=== PATIENT | female | born 1965 | race Caucasian/White ===

== ENCOUNTER 2018-03-26 10:00 | Observation (INO) ==
--- NOTE | 2018-03-26 09:01 | Discharge Summary ---
- NOTES TO OUTPATIENT PROVIDER Notes to Outpatient Provider: new HYPERTENSION - started on Lisinopril 10mg x 1 week until pcp appt. Orders not resulted at time of discharge: Pending orders 03/26/18 08:23 XR knee LT 1-2V [XR] Routine H/H [Hemoglobin and Hematocrit] [HEME] Routine Date of Encounter: 03/29/18 Time of Encounter: 11:47 - Discharge Diagnosis (1) Status post total knee replacement, left Priority: Primary Status: Acute Comments: Opsite dressing, leave intact until first post-operative visit. If dressing becomes >50% saturated, contact office, remove dressing and place appropriate dressing in its place. Do not allow for dressing to get wet. Zipline in place, plan to remove at post-operative day #14-16. Total Joint Precautions x 6 weeks Apply cold therapy wrap 3-6x/day for 20 minutes at a time. Encourage ambulation throughout the day Use Incentive spirometer 10x/hour. Elevate affected extremity above heart as tolerated. Brace: Wear knee immobilizer at night until first post-operative appt. (2) Arthritis of knee, left Priority: Primary Status: Chronic (3) Hepatitis C Priority: Secondary Status: Chronic Qualifiers: Qualified Code(s): B18.2 - Chronic viral hepatitis C (4) History of laparoscopic adjustable gastric banding Priority: Secondary Status: Chronic Comments: Unable to take tablets or capsules. 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 Green is a 52 year old female, status post Left TKR on 03/26- with a history of lab band procedure, codeine allergy, chronic hepatitis C, substance abuse, oropharyngeal dysphagia . Pain control difficult secondary to above mentioned medical complications. Overall, patient agreeable to liquid pain medication, Lidoderm patch. Unable to take oral NSAIDS, Tylenol, or any other tablets such as gabapentin, flexeril, etc. 03/28 - Hypertension noted - hospitalist consulted. Acute blood loss anemia - 1 unit transfused. We started Lisinopril 10mg, which will be continued x 1 week until she sees her PCP and pain has improved. Patient seen at bedside, A&O x 3 Afebrile, vital signs stable. BP controlled. Vital Signs Temp Pulse Resp BP Pulse Ox 03/29/18 10:57 98.7 F 88 18 135/85 100 03/29/18 09:59 123/81 03/29/18 06:44 98.9 F 91 16 150/93 100 03/29/18 04:08 98.7 F 83 16 128/81 99 03/29/18 00:31 98.6 F 74 18 139/88 100 03/28/18 20:54 88 138/83 03/28/18 19:40 98.1 F 82 16 147/93 97 03/28/18 17:17 170/95 03/28/18 16:50 98.5 F 90 16 175/107 95 03/28/18 14:41 98.6 F 91 18 172/105 100 03/28/18 14:00 99.1 F 86 20 177/103 100 Intake and Output 03/28/18 03/29/18 03/29/18 23:59 07:59 15:59 Intake Total 240 / 240 100 / 100 Output Total 800 / 800 Balance -560 / -560 100 / 100 Intake: Oral 240 / 240 100 / 100 Output: Urine 800 / 800 Other: Meal Dinner Breakfast Percent of Meal Consumed 75% 10% # Voids 1 1 Weight 42.4 kg Patient Weight 03/29/18 23:59 Weight 42.4 kg Labs reviewed. H/H - stable, asymptomatic Short CBC 03/29/18 Range/Units 04:08 WBC 7.6 D (4.3-11.1) K/mcL Hgb 8.6 L (11.5-15.4) g/dL Hct 26.0 L (35.3-44.9) % Plt Count 202 (140-400) K/mcL Neutrophils # 5.7 (1.6-8.9) K/mcL BMP 03/29/18 Range/Units 04:08 Sodium 136 (136-145) mEq/L Potassium 3.8 (3.5-5.1) mEq/L Chloride 99 (98-107) mEq/L Carbon Dioxide 29 (23-29) mEq/L BUN 8 (6-20) mg/dL Creatinine 0.41 L (0.60-1.20) mg/dL Glucose 109 H (70-105) mg/dL Calcium 8.7 (8.6-10.3) mg/dL Pain control: adequate Participating in PT. All questions and concerns addressed. Educated on use of incentive spirometer. Encouraged ambulation and proper hydration. Patient educated on post-operative restrictions and post-operative care. Assessment and plan: Continue with postoperative care Discharge plan: Home with HH , discharge today. f/up with PCP - Time Spent with Patient Total time spent providing and/or coordinating discharge services: - Discharge Medications Prescriptions: Lisinopril [Zestril] 10 mg PO DAILY #7 tablet Home Medications: Enoxaparin [Lovenox] 30 mg SQ Q12HCO syringe 03/29/18 [Rx] Lidocaine Patch [Lidoderm 5% patch] 1 each TP DAILY adh..patch 03/29/18 [Rx] Lisinopril [Zestril] 10 mg PO DAILY #7 tablet 03/29/18 [Rx] OxyCODONE Oral Soln [OxyCODONE ORAL SOLN] 5 mg PO Q4H PRN 7 Days #1 ud.[id number] 03/29/18 [Rx] Allergies/Adverse Reactions: Allergy/AdvReac Type Severity Reaction Status Date / Time codeine Allergy Unresponsiv Verified 03/22/18 11:53 e Sulfa (Sulfonamide AdvReac Unresponsiv Verified 03/22/18 11:53 Antibiotics) e Date of admission: 03/26/18 Primary care physician: PCP NONE Anticipated date of discharge: 03/29/18 - Patient Status Disposition: Home Health Service Condition: Good Functional capacity at discharge: uses cane/walker Overall status at discharge: patient is progressing back to baseline - Discharge Instructions Follow Up With: Rajeev King MD [Partnered Physician] - 04/25/18 5:05 pm Dejah Hassan PAC [Physician Pulp Maker] - 04/04/18 10:30 am (Second [facility] 04/13/18 @ 8am) NONE,PCP [Primary Care Provider] - Additional Instructions: Discharge Instructions: Total Knee Replacement Please call [facility] ([phone]), your Primary Care Physician, or report to the Emergency Room if you have any of the following symptoms: Nausea, vomiting, fever greater that 101.5, swelling, chest pain, shortness of breath, increased pain/redness/drainage/odor for your incision site, numbness/tingling, or any other concerning symptoms. ACTIVITY:Weight-bearing as tolerated. You may progress off support (crutches or walker) as tolerated. Incentive Spirometer 10 times an hour. MEDICATIONS: Upon discharge resume your home medications. Take all the medica tions as prescribed. Take a stool softener if taking narcotic pain medications. Stool softeners are only effective if you drink enough fluids. Drink 6-8 glass of water or fluids a day, unless this is not allowed for another health problem. Despite using stool softeners, if you haven't had a bowel movement in 3 days, please switch to a gentle laxative. Gentle laxatives are sold over the counter. You should have a bowel movement within 24 hours, if not call the office. You will be discharged from the hospital with a prescription for pain medication. You are encouraged to decrease the use of narcotic pain medication as tolerated. Should you require a refill, please call the office. [facility] prescribes narcotic pain medication for only 4-6 weeks after surgery. If you require pain medication beyond this time period, you may be referred to your Primary Care Physician or to the Pain Clinic for further evaluation. Plan ahead for refills on pain medication as many narcotics either need to be picked up at the office or mailed. It is best to call 48-72 hours in advance of needing a prescription refill so you don't run out of medication. To help control the post-operative pain, you may take NSAIDs (Aleve,Advil, Motrin, Ibuprofen, Naprosyn) or Tylenol as prescribed on the bottle in addition to the pain medication. ANTICOAGULATION (blood thinners): Continue your Aspirin, Lovenox or Coumadin as prescribed to help prevent a blood clot in the leg or in the lungs. As long as your incision remains dry and you tolerate the NSAIDs (Aleve, Advil, Motrin, ibuprofen, naprosyn), it is OK to use the NSAIDS while you are taking your anticoagulation medication. Should your incision start to drain, stop the NSAID and contact our office. Common symptoms of blood clot in the legs include: localized pain, swelling, calf tenderness, redness or discoloration of the skin. Blood clot in the lung symptoms include: shortness of breath, rapid pulse, sweating, and chest pain that worsens with deep breathing, coughing up blood, lightheadedness, feelings of anxiety. If you experience any of these symptoms notify your physician immediately, go to the emergency room, or if having trouble breathing, call 911. WOUND CARE: Leave the dressing on for 7 to 10days. You may change the dressing if it becomes saturated greater than 50%. Do not get the dressing wet at anytime. Wash your hands with antibacterial soap, rinse and dry prior to any wound care. If you have anatoliy the visiting nurse or rehab facility can remove the stapes 10-14 days after surgery and place steri-strips across the wound. Leave the steri-strips in place until they fall off on their won. You may let water from the shower run on top of the steri-strips. If you do not have a visiting nurse or rehab facility, you will need to return to the office at 10-14 days for the anatoliy to be removed. If you have itching or redness around the dressing call the office. FOLLOW-UP: Please follow up with your surgeon in the orthopedic clinic in 4 weeks from the day of surgery. If you have anatoliy that need to be removed, you will need to come back to the office in 10-14 days from the day of surgery. - Diet and Activity Activity: as per physical therapy
[2018-03-26] MEDS ORDERED: CeFAZolin Syr 2,000MG/20 ML 2,000 MG/20 ML SYRINGE IVPB ONE (10:22)
--- NOTE | 2018-03-26 10:25 | History & Physical Report ---
Date of Encounter: 03/26/18 Time of Encounter: 10:24 24 Hour HP Update - Instructions Instructions: If the History and Physical is less than 30 days old and was completed prior to A.M. admission and or procedure and has NOT been updated on calendar day of procedure please complete this update prior to performing procedure. - Update Patient reports changes in Medical Condition: No Changes in examination, assessment, or condition: No Changes in Medication: No Preop tests/diagnostics Reviewed: Yes Surgery Remains Indicated: Yes Consent for Planned Operative Procedure(s) Verified: Yes - Pre-Operative Checklist Preoperative Checklist Indicated: No Prophylactic Antibiotic Ordered: Yes Is VTE Prophylaxis Indicated?: Yes
[2018-03-26] MEDS ORDERED: Ringers Solution, Lactated 1,000 ML IVC SCH (10:30)
--- NOTE | 2018-03-26 12:08 | Anesthesia Evaluation PreOp ---
Date of Encounter: 03/26/18 Time of Encounter: 12:24 - Past History Planned Operation: LEFT TKA Cardiac History: Denies any Significant Hx Pulmonary History: Denies Any Significant HX HEALTH INSURANCE ASSESSOR History: Other (ANXIETY, NOT TREATED, HISTORY OF POLYDRUG ABUSY, HAS BEEN CLEAN FOR 10 YRS NOW) Other Medical History: Other (100 LB CA LOSS POST LAP BAND TWO YEARS AGO) Anesthesia History: No Prior Anesthetic Complications, Past Anesthesia Alcohol Use: none Drug use: none Medications and Allergies No Known Home Drugs 03/26/18 [History] Allergy/AdvReac Type Severity Reaction Status Date / Time codeine Allergy Unresponsiv Verified 03/22/18 11:53 e Sulfa (Sulfonamide AdvReac Unresponsiv Verified 03/22/18 11:53 Antibiotics) e - Meds/Allergy Pre-op Review Medications Reviewed: Yes Allergies Reviewed: Yes Beta Blockers on Current Med List: No Anesthesia Results - Labs Laboratory Last Values WBC 4.6 K/mcL (4.3-11.1) 03/22/18 12:02 RBC 4.92 M/mcL (3.82-4.97) 03/22/18 12:02 Hgb 12.1 g/dL (11.5-15.4) 03/22/18 12:02 Hct 37.2 % (35.3-44.9) 03/22/18 12:02 MCV 75.6 fL (83.0-100.0) L 03/22/18 12:02 MCH 24.6 pg (28.0-33.3) L 03/22/18 12:02 MCHC 32.5 g/dL (31.6-35.5) 03/22/18 12:02 RDW 13.7 % (11.5-14.5) 03/22/18 12:02 Plt Count 315 K/mcL (140-400) 03/22/18 12:02 MPV 9.5 fL (9.4-12.4) 03/22/18 12:02 Immature Gran % 0.2 % (0-4) 03/22/18 12:02 Seg Neutrophils % 54.1 % 03/22/18 12:02 Lymphocytes % 37.2 % 03/22/18 12:02 Monocytes % 7.4 % 03/22/18 12:02 Eosinophils % 0.2 % 03/22/18 12:02 Basophils % 0.9 % 03/22/18 12:02 Neutrophils # 2.5 K/mcL (1.6-8.9) 03/22/18 12:02 Lymphocytes # 1.7 K/mcL (0.6-4.6) 03/22/18 12:02 Monocytes # 0.3 K/mcL (0.0-1.3) 03/22/18 12:02 Eosinophils # 0.0 K/mcL (0.0-0.6) 03/22/18 12:02 Basophils # 0.0 K/mcL (0.0-0.2) 03/22/18 12:02 PT 11.3 Seconds (9.4-12.1) 03/22/18 12:02 INR 1.0 03/22/18 12:02 APTT 34.5 Seconds (26.0-36.0) 03/22/18 12:02 Sodium 140 mEq/L (136-145) 03/22/18 12:02 Potassium 3.0 mEq/L (3.5-5.1) L 03/22/18 12:02 Chloride 104 mEq/L (98-107) 03/22/18 12:02 Carbon Dioxide 25 mEq/L (23-29) 03/22/18 12:02 BUN 12 mg/dL (6-20) 03/22/18 12:02 Creatinine 0.73 mg/dL (0.60-1.20) 03/22/18 12:02 Est GFR ( Amer) > 60 (> 60) 03/22/18 12:02 Est GFR (Non-Af Amer) > 60 (> 60) 03/22/18 12:02 BUN/Creatinine Ratio 16 (6-26) 03/22/18 12:02 Anesthesia Exam O2 Sat Height 1.57 m Height 1.57 m Weight 42.184 kg Weight 42.184 kg O2 Sat by Pulse Oximetry 100 O2 Sat by Pulse Oximetry 100 Vital Signs Temp Pulse Resp BP Pulse Ox 97.8 F 66 18 130/92 100 03/26/18 10:35 03/26/18 10:35 03/26/18 10:35 03/26/18 10:35 03/26/18 10:35 NPO (# of Hours): 8 - HEENT Mallampati: I Teeth: Normal Oral Opening: Greater than 3 (LIMITED MO) - Cardiac Rhythm: Regular - Pulmonary Breath Sounds: bilateral Clear Respiratory Effort: Symmetrical Anesthesia Assess/Plan ASA Score: 2 Anesthetic Plan: Regional Nerve Block (FOR POST OPERATIVE PAIN CONTROL), Spinal Regional Nerve Block Plan: Adductor canal, IPACK Monitoring Plan: Standard Monitors Recovery Plan: PACU Anes Supervising Prov Stmt: Patient informed and consented. Risks, benefits, and alternatives discussed. Patient wishes to proceed.
[2018-03-26] MEDS ORDERED: *HR* Methadone 10 MG TABLET PO ONE (12:26)
[2018-03-26] MEDS ORDERED: Pregabalin 50 MG CAPSULE PO ONE (12:27)
[2018-03-26] MEDS ORDERED: *HR* FentaNYL (PF) 100 MCG/2 ML VIAL ONE (13:33)
[2018-03-26] MEDS ORDERED: *HR* Propofol 200 MG/20 ML VIAL IVP ONE (13:33)
[2018-03-26] MEDS ORDERED: Lidocaine -MPF 2% 2 ML VIAL ONE (13:37)
[2018-03-26] MEDS ORDERED: Dexamethasone 4 MG/ML VIAL ONE (13:37)
[2018-03-26] MEDS ORDERED: Ondansetron 4 MG/2 ML VIAL ONE (13:37)
[2018-03-26] MEDS ORDERED: *HR* Midazolam HCl 2 MG/2 ML VIAL ONE (13:38)
[2018-03-26] MEDS ORDERED: Ethanol\\Acetic Acid\\Na Ace\\Ben 1,000 ML IRRIG.SOLN IR ONE (14:21)
[2018-03-26] MEDS ORDERED: ROPIVACAINE HCL/PF 0.5% 30 ML VIAL ONE (14:24)
[2018-03-26] MEDS ORDERED: Bupivacaine/Clonidine Syringe 1 EACH SYRINGE ONE (14:25)
--- NOTE | 2018-03-26 14:46 | Physician Discharge Referral ---
Home Health/Hosp Referral Info Transfer to: Home Health Attending Provider: Dr. 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 For more information, call the [place] Tobacco Quit Line at 4-214-QZNQ-NOW. - Dressing/Wound Care Site: left knee Type of Dressing/Treatments w/Frequency: Opsite placed. Keep dressing intact until first follow up appointment. If > 50% saturated, notify office, remove dressing and place appropriate dressing back in place. Leave Zipline intact. Opsite dressing is water resistant, not water- proof. OK to shower, but do not get dressing wet. - Diet/Nutrition Diet/Nutrition Orders: Regular - Activity Activity Orders: Up ad viri, Ambulate, Chair, Walker Activity: List: Total Knee replacement Precautions x 6 weeks Apply cold therapy wrap 3-6x/day for 20 minutes at a time. Encourage ambulation throughout the day and incentive spirometer 10x/hour. Elevate affected extremity above heart as tolerated. Brace: Wear knee immobilizer at night x 2 weeks. - Services Needed Following services are medically necessary services: Nursing, Home Health Aide, Physical Therapy, Occupational Therapy, Med Social Work - Transfer Medications Home Medications: No Known Home Drugs 03/26/18 [History] Allergies/Adverse Reactions: Allergy/AdvReac Type Severity Reaction Status Date / Time codeine Allergy Unresponsiv Verified 03/22/18 11:53 e Sulfa (Sulfonamide AdvReac Unresponsiv Verified 03/22/18 11:53 Antibiotics) e Certification: Further, I certify that my clinical findings support that this patient is homebound (i.e. absences from home require considerable and taxing effort and are for medical reasons or [employer] services or infrequently or short duration when for other reasons) because: Homebound Reason: Post-surgery restriction and or conditions limit ability to leave home Attestation: My signature below is to certify that this patient is under my care and that I, or nurse practitioner, or a physician hospital administrative assistant working with me, has a face -to-face encounter with this patient.
[2018-03-26] MEDS ORDERED: Propofol 500 MG/50 ML INFUS..BTL ONE (14:49)
--- NOTE | 2018-03-26 15:26 | Anesthesia Procedures ---
Date of Encounter: 03/26/18 Time of Encounter: 14:30 Procedures: Anesthesia - Epidural/Spinal Patient ID/Chart reviewed: Yes Patient examined: Yes Consent Obtained: Yes Supplemental Oxygen: Nasal Cannula Supplemental Oxygen Rate (L/min): 2 Sedation: Versed (mg): 2 Sedation: Fentanyl (mcg): 50 Site Prep: Aseptic Technique, Sterile prep and drape, 0.5% Chlorhexidine/Alcohol Patient position: upright Local Anesthetic: Lidocaine 1% Amount of Local Anesthetic used: 2 Interspace Used: L4-L5 Blood: No CSF: Yes Paresthesia: No Spinal Needle Gauge: 25 Spinal Dose: 2mL of 0.5% PF Bupivacaine with 200mcg Duramorph Procedure: Spinal completed at L4-L5 using sterile Technique. 25g pencil point needle inserted through introducer. Clear CSF noted, No heme and swirl noted on aspiration prior to injection of spinal anesthetic. Vitals + FHT's: Vital Signs/O2 Sat/Glucose, Most Recent Temp Pulse Resp BP Pulse Ox 97.8 F 73 16 140/99 100 03/26/18 10:35 03/26/18 14:25 03/26/18 14:25 03/26/18 14:25 03/26/18 14:25 - Nerve Block Procedure Date: 03/26/18 Time: 13:35 Allergies/Adv Reactions: Codeine, Sulfa Pre-op Diagnosis: L Knee Arthritis Surgical Procedure: L Robotic Total Knee Arthroplasty Checklist: Correct Patient Identifier, Correct procedure, History checked Correct side: Left Blood Thinner: No Monitor Applied: EKG, BP, Pulse Oximetry Supplemental Oxygen via Nasal Cannula (L/min): 2 Sedation: Versed (mg): 2 (Given prior to spinal ) Sedation: Fentanyl (mcg): 50 (Given prior to spinal) Indication: Post Op Analgesia Pre-op Neuro Deficits: No Block Type: Other (Adductor Cannal and IPACK) Catheter placed: No Sterile Technique: Yes Ultrasound used: Yes Anatomy identified: Yes Visual spread of Local: Yes Neuro Stimulation: No Blood on Needle Aspiration: No Smooth Injection of Local: Yes Pain with Injection of Local: No Prep: Chlorhexadine Needle: 22 x 50 mm Stimuplex, 21 x 100 mm Stimuplex Local: 0.25% Bupivicaine w/Clonidine 20 mcg/cc (20ml For IPACK), Ropivacaine (20mL of 0.5% Ropivacaine with 8mg decadron) Number of Attempts: 1 Complications: None/effective block Vitals: Vital Signs/O2 Sat/Glucose, Most Recent Temp Pulse Resp BP Pulse Ox 97.8 F 73 16 140/99 100 03/26/18 10:35 03/26/18 14:25 03/26/18 14:25 03/26/18 14:25 03/26/18 14:25
[2018-03-26] MEDS ORDERED: Ondansetron 4 MG/2 ML VIAL IVP ONE (15:34)
[2018-03-26] MEDS ORDERED: *HR* FentaNYL (PF) 100 MCG/2 ML VIAL IVP PRN (15:34)
[2018-03-26] MEDS ORDERED: Ondansetron 4 MG/2 ML VIAL IVP PRN ×2 (15:35→16:49)
[2018-03-26] MEDS ORDERED: *HR* HYDROmorphone (PF) 1 MG/ML SYRINGE IVP PRN (15:35)
--- NOTE | 2018-03-26 15:40 | Orthopedic Operative Note ---
Date of procedure: 03/26/18 Pre-op diagnosis: Left knee arthritis Post-op diagnosis: same Procedure: Procedure: Left robotic-assisted Total knee replacement Estimated blood loss: 200 cc Hardware: Metal and polyethylene replacement. Press-fit Josesito Femur: 2 Tibia: 2 PS insert: 11 Patella: 36 Exam Under anesthesia: 3 degree hyperextension 13 degree varus as calculated by the robot full flexion and no instability Procedural Notes: Grade 4 arthritic changes medial compartment patellofemoral joint. Operative procedure: The patient was brought to the operating room and placed on the operating room table. After general anesthesia was administered the operative knee was examined. Findings were noted in the exam under anesthesia. The operative extremity was prepped and draped in sterile surgical fashion. The patient received IV antibiotics prior to skin incision. A standard midline incision was made centered over the patella. The incision was made through the skin and subcutaneous tissue. A medial parapatellar tendon approach was performed. Care was taken to preserve tissue along the medial aspect of the patella. And to protect the patella tendon. The deep MCL was released off the medial tibia. The infra patella fat pad was excised. The patella was everted and cut was made at the level of the insertion of the quadriceps and patella tendon. The patella was sized the guide was seated and the lug holes are drilled. Knee was brought into flexion. Patient noted to have grade 4 arthritic changes no compartment patellofemoral joint. Steinmann pins were placed in the tibia and the femur for the tibial and femoral arrays respectively. Checkpoints were also placed in the tibia and the femur for calculation purposes. The knee including the femur and the tibial registered. Osteophytes, ACL and PCL were excised at this point. Extension and flexion were assessed with a valgus stress components were adjusted on the computer to balance the knee. Femoral cuts were made first with robotic assistance, these included the anterior cut posterior cuts chamfer cuts. Tibial cut was then performed with robotic assistance as well. Bone fragments were removed, as well as the medial and lateral meniscus. The size 2 femoral guide was seated box cut was made lug holes are drilled. The size 2 tibial tray was seated and prepared with the fin cutter. Trial reduction with the 11 PS Ivnoe revealed extension of 0 degree and 7 degree varus full flexion. No varus valgus instability. Trial reduction revealed excellent patella tracking. All trial components were removed all bony surfaces were irrigated. The Tibia was seated followed by the femur, The selected Ivone size was seated and secured patella. Patient had similar findings for motion and stability. The knee was closed by the PA. The knee was then irrigated out with 2 L of pulse irrigation. The extensor mechanism was closed with #2 FiberWire suture and #2 PDS suture. The subcutaneous tissue was then irrigated and closed deep with #1 PDS suture superficially with 0 PDS suture and skin was closed with zip tie The patient was then placed in a sterile dressing and a postoperative brace extubated and transferred to recovery room in stable condition. Anesthesia: spinal Surgeon: Rajeev King Was there an project assistant present: No Estimated blood loss (cc): 300 Condition: stable Disposition: PACU
[2018-03-26 16:38] LABS: Hematocrit 32.7 % (35.3-44.9)
[2018-03-26 16:46] LABS: Hemoglobin 10.4 g/dL (11.5-15.4)
[2018-03-26] MEDS ORDERED: OXYCODONE 5 MG/5 ML PO PRN (16:49)
[2018-03-26] MEDS ORDERED: Sennosides 8.6 MG TABLET PO PRN (16:49)
[2018-03-26] MEDS ORDERED: Temazepam 15 MG CAPSULE PO PRN (16:49)
[2018-03-26] MEDS ORDERED: Naloxone 0.4 MG/ML INJ IVP PRN (16:49)
[2018-03-26] MEDS ORDERED: traMADol 50 MG TABLET PO PRN (16:49)
[2018-03-26] MEDS ORDERED: *HR* OxyCODONE/APAP 5/325 TABLET PO PRN (16:49)
[2018-03-26] MEDS ORDERED: MOM Conc 10 ML UD.LIQ PO PRN (16:49)
[2018-03-26] MEDS: *HR* Enoxaparin 30 MG/0.3 ML SYRINGE SQ SCH (18:40)
--- NOTE | 2018-03-26 18:49 | Anesthesia Evaluation Post Op ---
Date of Encounter: 03/26/18 Time of Encounter: 16:40 - Discharge PostOp Status: Transfer Patient to floor (Patient's vital signs have been reviewed. Patient is stable postoperatively and has adequately recovered from anesthesia. Patient is determined to have stable airway patency and respiratory function including respiratory rate and oxygen saturation. Patient has a stable heart rate, blood pressure and adequate hydration. Patients mental status is acceptable. Patients temperature is appropriate. Pain and nausea are adequately controlled.)
[2018-03-26] MEDS: Ringers Solution, Lactated 1,000 ML IVC SCH (19:58)
[2018-03-27 05:34] LABS: Hematocrit 29.7 % (35.3-44.9); Hemoglobin 9.4 g/dL (11.5-15.4)
[2018-03-27] MEDS: *HR* Enoxaparin 30 MG/0.3 ML SYRINGE SQ SCH ×2 (05:41→16:18)
--- NOTE | 2018-03-27 06:26 | Orthopedics Progress Note ---
Date of Encounter: 03/27/18 Time of Encounter: 06:26 Subjective Interval history: Patient was seen this morning doing well without complaints. Afebrile vital signs stable. Operative extremity: Neurovascularly intact Dressing clean dry and intact Calves nontender Assessment and plan: Continue with postoperative care Hematocrit 29.7 Objective Vital signs: Vital Signs Temp Pulse Resp BP Pulse Ox 03/27/18 05:15 98.0 F 74 18 109/68 100 03/26/18 23:40 97.7 F 77 18 104/63 100 03/26/18 20:00 97.7 F 79 18 109/73 100 03/26/18 18:55 97.8 F 69 15 130/85 99 03/26/18 18:41 97.3 F L 66 14 117/77 100 03/26/18 18:00 97.5 F L 64 12 132/84 100 03/26/18 17:27 97.8 F 62 12 129/86 100 03/26/18 16:55 58 12 137/90 100 03/26/18 16:42 97.2 F L 66 18 128/90 100 03/26/18 16:32 64 18 139/92 100 03/26/18 16:22 58 18 136/89 100 03/26/18 16:12 97.9 F 62 18 111/77 100 03/26/18 14:25 73 16 140/99 100 03/26/18 10:41 100 03/26/18 10:35 97.8 F 66 18 130/92 100 Intake and Output 03/26/18 03/26/18 03/27/18 15:59 23:59 07:59 Intake Total 340 / 340 240 / 240 Output Total 300 / 300 0 / 0 Balance 40 / 40 240 / 240 Intake: IV Fluids 100 / 100 Ancef 2,000 MG In 0.9 % Sodium 100 / 100 Chloride 100 ML @ 200 mls/hr IVPB Q8H APOORVA Rx#:[id number] Oral 240 / 240 240 / 240 Output: Urine 0 / 0 0 / 0 Estimated Blood Loss 300 / 300 Other: # Voids 1 Weight 42.184 kg 41.8 kg Patient Weight 03/27/18 23:59 Weight 41.8 kg - Labs CBC & BMP: 03/27/18 04:50 Labs: Abnormal lab results Hgb 9.4 g/dL (11.5-15.4) L 11/13/18 04:50 Hct 29.7 % (35.3-44.9) L 03/27/18 04:50 Consult Discharge Plan - Plan Referrals: NONE,PCP [Primary Care Provider] -
[2018-03-27 06:37] LABS: BUN/Creatinine Ratio 23 (6-26); Blood Urea Nitrogen 14 mg/dL (6-20); Calcium 8.7 mg/dL (8.6-10.3); Carbon Dioxide 28 mEq/L (23-29); Glucose 144 mg/dL (70-105); eGFR For Non-African Americans > 60 (> 60)
[2018-03-27 06:38] LABS: Chloride 103 mEq/L (98-107); Osmolality,Calculated 293 (280-300); Sodium 140 mEq/L (136-145)
[2018-03-27] MEDS: Ringers Solution, Lactated 1,000 ML IVC SCH (09:15)
[2018-03-27] MEDS: *HR* OxyCODONE Oral Soln 5 MG/5 ML UD.LIQ PO PRN (09:17)
[2018-03-27] MEDS: Ketorolac 15 MG/ML VIAL IVP PRN ×2 (12:25→18:26)
[2018-03-28] MEDS: *HR* OxyCODONE Oral Soln 5 MG/5 ML UD.LIQ PO PRN ×6 (00:25→20:46)
[2018-03-28 05:50] LABS: Hematocrit 23.9 % (35.3-44.9); Hemoglobin 7.9 g/dL (11.5-15.4)
[2018-03-28] MEDS: *HR* Enoxaparin 30 MG/0.3 ML SYRINGE SQ SCH ×2 (05:58→18:38)
--- NOTE | 2018-03-28 06:43 | Orthopedics Progress Note ---
Date of Encounter: 03/28/18 Time of Encounter: 06:43 Subjective Interval history: Patient was seen this morning doing well without complaints. Afebrile vital signs stable. Operative extremity: Neurovascularly intact Dressing clean dry and intact Calves nontender Assessment and plan: Continue with postoperative care Hematocrit 23.9 transfuse 1 unit plan for discharge this afternoon Objective Vital signs: Vital Signs Temp Pulse Resp BP Pulse Ox 03/28/18 06:29 98.2 F 89 20 127/103 93 03/28/18 03:36 97.6 F 80 16 168/85 100 03/27/18 22:40 98.3 F 75 16 151/93 100 03/27/18 19:19 98.3 F 64 17 167/98 100 03/27/18 11:59 97.8 F 75 16 123/73 100 Intake and Output 03/27/18 03/27/18 03/28/18 15:59 23:59 07:59 Intake Total 400 / 400 Output Total 500 / 500 Balance 400 / 400 -500 / -500 Intake: Oral 400 / 400 Output: Urine 500 / 500 Other: Meal Breakfast Dinner Percent of Meal Consumed 100% 40% Weight 42.3 kg Patient Weight 03/28/18 23:59 Weight 42.3 kg - Labs CBC & BMP: 03/28/18 04:45 03/27/18 04:50 Labs: Abnormal lab results Hgb 7.9 g/dL (11.5-15.4) L D 03/28/18 04:45 Hct 23.9 % (35.3-44.9) L 03/28/18 04:45 Glucose 144 mg/dL (70-105) H 03/27/18 04:50 Consult Discharge Plan - Plan Referrals: NONE,PCP [Primary Care Provider] -
[2018-03-28] MEDS ORDERED: Furosemide 20 MG/2 ML VIAL IVP ONE (07:01)
[2018-03-28 07:11] LABS: Potassium 4.1 mEq/L (3.5-5.1)
[2018-03-28 07:12] LABS: BUN/Creatinine Ratio 31 (6-26); Blood Urea Nitrogen 14 mg/dL (6-20); Calcium 8.5 mg/dL (8.6-10.3); Carbon Dioxide 23 mEq/L (23-29); Chloride 101 mEq/L (98-107); Glucose 93 mg/dL (70-105); Osmolality,Calculated 274 (280-300); Sodium 132 mEq/L (136-145); eGFR For Non-African Americans > 60 (> 60)
[2018-03-28] MEDS: Ketorolac 15 MG/ML VIAL IVP PRN (09:09)
[2018-03-28] MEDS ORDERED: 0.9 % Sodium Chloride 250 ML ONE (11:01)
--- NOTE | 2018-03-28 20:37 | Internal Medicine Consult Note ---
Date of Encounter: 03/28/18 Time of Encounter: 20:33 - Assessment and plan (1) Acute blood loss anemia Current Visit: Yes Status: Acute Assessment and plan: postoperative blood loss anemia. Patient has been transfused 1 unit earlier today. Hemoglobin was 12.1 on 03/22 2018. At 7.9 today. We will continue to monitor. Labs in the morning. (2) Elevated blood pressure reading Current Visit: Yes Status: Acute Assessment and plan: Patient carries no diagnosis of hypertension. I suspect much of her elevated blood pressure readings have been due to uncontrolled pain. She has been started on lisinopril earlier by the primary service and she has received 10 mg of it. She tells me that she usually runs on the lower side in terms of blood pressure. I am okay with continuing the lisinopril 10 mg for now but consider stopping it completely if her blood pressure stabilizes after adequate pain control. Pain management will be up to the primary service (3) Status post total knee replacement, left Current Visit: No Status: Acute Assessment and plan: This was done on 03/26/2018. Pain is to be adequately addressed as I mentioned above for better blood pressure control. - Time Spent With Patient Total time spent is greater than 50% in coordination of care (as documented) at patient's floor/unit and/or counseling patient: Internal Medicine - CN: HPI - Data of Consult Patient: new to practice Consult date: 03/28/18 Requesting Physician: Rajeev King MD - Consult Narrative Reason for consult: High blood pressure History of present illness: Ms. Green is a 52 year old female who has no significant past medical history and takes no medications was admitted under Dr. King from the orthopedic service as she is status post left total knee arthroplasty done on 03/26/2018 with estimated blood loss per the report of 200 mL. The patient apparently postoperatively has experienced blood loss anemia and needed transfusions in 1 unit today. She is also been having elevated blood pressure with no history of hypertension. The highest blood pressure recorded our system that I am seeing earlier today with a systolic of 179. Denies diastolic recorded was 107 also earlier this afternoon. When I questioned the patient she still me that her pain has been "awful". The nursing staff told me that she has not slept all night yesterday and was in tears all night and this morning due to the pain. The patient tells me that her pain is still about 10 out of 10 this evening and she has swelling around her left knee. She was started on lisinopril earlier today and has received a dose of 10 mg. The latest blood pressure check was 147/93. Denies any headache, blurry vision, dizziness, chest pain, shortness of breath, abdominal pain, diarrhea, constipation, urinary symptoms, or neurological symptoms Past Med Surg Social Fam HX - Past Medical History Medical history: arthritis, hepatitis, kidney stones Additional medical history: depression, substance abuse, post traumatic stress disorder Psychiatric history: depression - Past Surgical History Surgical History: breast surgery, Additional surgical history: lap band, right knee surgery, left knee surgery - Social History Smoking Status: Former smoker Smokeless Tobacco Status: No Alcohol use: none Drug use: none Review of systems: All systems reviewed are negative except for as mentioned above Internal Medicine - CN: Meds No Known Home Drugs 03/26/18 [History] Allergy/AdvReac Type Severity Reaction Status Date / Time codeine Allergy Unresponsiv Verified 03/22/18 11:53 e Sulfa (Sulfonamide AdvReac Unresponsiv Verified 03/22/18 11:53 Antibiotics) e Hospitalist - CN: Exam - Constitutional Vitals: Temp Pulse Resp BP Pulse Ox 98.1 F 82 16 147/93 97 03/28/18 19:40 03/28/18 19:40 03/28/18 19:40 03/28/18 19:40 03/28/18 19:40 Exam: GEN: NAD HEENT: AT, NC, No cyanosis, oral mucosa is moist, No JVD Lymphatics: No lymphadenoapthy Eyes: Extrocular muscles intact, anicteric CVS:RRR. S1, S2, No m/r/g RESP: CTAB ABD: Soft, NT, ND, +BS EXT: Left knee swelling. Area of incision with no surrounding erythema., No rashes, 2+ DP NEURO: Nonfocal, CN II-XII intact, No focal motor or sensory deficits Psych: Cooperative, Not anxious or depressed Internal Medicine - CN: Reslt - Labs CBC & Chem 7: 03/28/18 04:45 03/28/18 04:45 Labs: Short CBC 03/28/18 Range/Units 04:45 Hgb 7.9 L D (11.5-15.4) g/dL Hct 23.9 L (35.3-44.9) % BMP 03/28/18 04:45 Sodium 132 L Potassium 4.1 Chloride 101 Carbon Dioxide 23 BUN 14 Creatinine 0.45 L Glucose 93 Calcium 8.5 L - Impressions Impressions Knee X-Ray 03/26/18 08:23 IMPRESSION: Status post left total knee arthroplasty. No radiographic evidence of acute complication. D/ / 03/26/2018 20:23:23 Bonilla Romo MD / chris Interpreting Provider: Bonilla Romo MD Consult Discharge Plan - Plan Referrals: NONE,PCP [Primary Care Provider] -
--- NOTE | 2018-03-28 21:44 | Event Note ---
Date of Encounter: 03/28/18 Time of Encounter: 16:45 Patient continued to have elevated BP, no history of hypertension noted. Asymptomatic per nursing report. Charge nurse reported pain controlled and that patient continued to be drowsy, so we will not plan to increase pain medication as discussed on Monday. Continue with multi-modal approach to pain control. Lisinopril was given - 10 mg. She completed her 1 unit of blood secondary to acute blood loss anemia. She continued to be hypertensive 179/109. Hospitalist was paged at approx [phone]. I called again at approx 1800 when I had not received a return call. Hospitalist did call back at approx 1830 and agreed to consult patient for hypertension.
[2018-03-29] MEDS: *HR* OxyCODONE Oral Soln 5 MG/5 ML UD.LIQ PO PRN ×2 (02:13→06:25)
[2018-03-29 05:10] LABS: Basophils % 0.3 %; Eosinophils % 0.1 %; Hemoglobin 8.6 g/dL (11.5-15.4); Immature Granulocytes % 0.3 % (0-4); Lymphocytes # 1.3 K/mcL (0.6-4.6); Lymphocytes % 17.2 %; Mean Corpuscular HGB Conc 33.1 g/dL (31.6-35.5); Mean Corpuscular Hemoglobin 25.1 pg (28.0-33.3); Mean Corpuscular Volume 75.8 fL (83.0-100.0); Mean Platelet Volume 9.3 fL (9.4-12.4); Monocytes # 0.5 K/mcL (0.0-1.3); Monocytes % 6.7 %; Platelet Count 202 K/mcL (140-400); Red Blood Count 3.43 M/mcL (3.82-4.97); Red Cell Distribution Width 14.6 % (11.5-14.5); Segmented Neutrophils % 75.4 %
[2018-03-29 05:12] LABS: Neutrophils # 5.7 K/mcL (1.6-8.9)
[2018-03-29] MEDS: *HR* Enoxaparin 30 MG/0.3 ML SYRINGE SQ SCH (05:26)
[2018-03-29 05:36] LABS: BUN/Creatinine Ratio 20 (6-26); Blood Urea Nitrogen 8 mg/dL (6-20); Calcium 8.7 mg/dL (8.6-10.3); Carbon Dioxide 29 mEq/L (23-29); Chloride 99 mEq/L (98-107); Glucose 109 mg/dL (70-105); Magnesium 1.9 mg/dL (1.6-2.6); Osmolality,Calculated 281 (280-300); Potassium 3.8 mEq/L (3.5-5.1); Sodium 136 mEq/L (136-145); eGFR For Non-African Americans > 60 (> 60)
--- NOTE | 2018-03-29 07:50 | Orthopedics Progress Note ---
Date of Encounter: 03/29/18 Time of Encounter: 07:50 Subjective Interval history: Patient was seen this morning patient with hypertension increased pain doing better this morning. Afebrile vital signs stable. Operative extremity: Neurovascularly intact Dressing clean dry and intact Calves nontender Assessment and plan: Continue with postoperative care Hematocrit 26 discharged today Objective Vital signs: Vital Signs Temp Pulse Resp BP Pulse Ox 03/29/18 06:44 98.9 F 91 16 150/93 100 03/29/18 04:08 98.7 F 83 16 128/81 99 03/29/18 00:31 98.6 F 74 18 139/88 100 03/28/18 20:54 88 138/83 03/28/18 19:40 98.1 F 82 16 147/93 97 03/28/18 17:17 170/95 03/28/18 16:50 98.5 F 90 16 175/107 95 03/28/18 14:41 98.6 F 91 18 172/105 100 03/28/18 14:00 99.1 F 86 20 177/103 100 03/28/18 11:21 981 F H 84 14 179/100 100 03/28/18 11:13 99 F 78 16 164/101 96 Intake and Output 03/28/18 03/28/18 03/29/18 15:59 23:59 07:59 Intake Total 520 / 520 240 / 240 Output Total 800 / 800 Balance 520 / 520 -560 / -560 Intake: IV Fluids 100 / 100 Ancef 2,000 MG In 0.9 % Sodium 100 / 100 Chloride 100 ML @ 200 mls/hr IVPB Q8H [facility] Rx#:[id number] Oral 120 / 120 240 / 240 Blood Product 300 / 300 Rbcs Leuko Poor As-1 Unit 300 / 300 [id number] Output: Urine 800 / 800 Other: Meal Lunch Dinner Percent of Meal Consumed 25% 75% # Voids 2 1 1 Weight 42.4 kg Patient Weight 03/29/18 23:59 Weight 42.4 kg - Labs CBC & BMP: 03/29/18 04:08 03/29/18 04:08 Labs: Abnormal lab results RBC 3.43 M/mcL (3.82-4.97) L 03/29/18 04:08 Hgb 8.6 g/dL (11.5-15.4) L 03/29/18 04:08 Hct 26.0 % (35.3-44.9) L 03/29/18 04:08 MCV 75.8 fL (83.0-100.0) L 03/29/18 04:08 MCH 25.1 pg (28.0-33.3) L 03/29/18 04:08 RDW 14.6 % (11.5-14.5) H 03/29/18 04:08 MPV 9.3 fL (9.4-12.4) L 03/29/18 04:08 Creatinine 0.41 mg/dL (0.60-1.20) L 03/29/18 04:08 Glucose 109 mg/dL (70-105) H 03/29/18 04:08 Consult Discharge Plan - Plan Referrals: NONE,PCP [Primary Care Provider] -
--- NOTE | 2018-03-29 08:39 | Internal Med Progress Note ---
<Olivia Adan - Last Filed: 03/29/18 14:19> Hospitalist Progress Note - Encounter Date of Encounter: 03/29/18 Time of Encounter: 08:15 - Subjective Interval History: Ms. Green is a 52 yo F with a PMHx of hepatitis C and IV drug abuse for whom internal medicine was consulted after patient experienced acute blood loss anemia and HTN status post L total knee replacement on 03/26. This morning, patient appeared to be in distress due to pain. Patient states that pain is 9.5/10. She complains of swelling in L knee, L ankle, and both hands. States that swelling in hands has decreased since yesterday. She says that anywhere that is swollen is painful. States that she did not eat much yesterday. ROS: A bit dizzy. Somewhat difficult to get urinary stream started. Swelling and pain as mentioned above. All other systems negative. - Exam Vitals: Temp Pulse Resp BP Pulse Ox 98.9 F 91 16 150/93 100 03/29/18 06:44 03/29/18 06:44 03/29/18 06:44 03/29/18 06:44 03/29/18 06:44 Exam: Gen: lethargic, in distress due to pain. Oriented X3. Able to answer all questions appropriately. Skin: incision on L knee without exudate, minimal erythema. Skin intact elsewhere on extremities. Head: normocephalic, atraumatic Eyes: pupils equal and round. Sclera non-icteric. CV: RRR. No murmurs, gallops, or rubs. Resp: CTA bilaterally. No wheezes, rhonchi, or rales. Abd: BS x2 (on left). No tenderness or guarding. Extr: L knee swollen, non-erythematous, with very limited ROM. Slight non- pitting swelling of L ankle. Possible slight swelling in hands, ROM in hands intact. - Assessment and Plan (1) Elevated blood pressure reading Status: Acute Assessment and Plan: BP up into 170s/100s starting on 03/27 through late afternoon on 03/28. Patient carries no diagnosis of hypertension. Elevated BP readings possibly due to uncontrolled pain. Was given 20 mg Lasix at 7:00 on 03/28 after blood transfusion. Last night into early this morning, BP was better controlled in the 120s- 130s/80s, but BP was up to 150/93 at 6:44 this morning. BP back down to 123/81 at 10:00 this morning after receiving dose of lisinopril and tylenol. Started on lisinopril 10 mg PO daily. Took one dose at 15:52 on 03/28 and another at 9:16 today. Continue the lisinopril 10 mg short term but consider stopping it completely if her blood pressure stabilizes after adequate pain control. See PCP in next 5 days for BP assessment. IM signing off. (2) Acute blood loss anemia Status: Acute Assessment and Plan: Postoperative blood loss anemia s/p L total knee replacement on 03/26. Hemoglobin was 12.1 on 03/22/2018 and dropped to 7.9 on 03/28. Patient was transfused 1 unit of RBCs on 03/28. Hgb is up to 8.6 today. See PCP in next 5 days for CBC (3) Status post total knee replacement, left Status: Acute Assessment and Plan: Surgery done on 03/26/2018. Swelling and limited ROM as mentioned above. Ortho following. Pain control: - oxycodone oral soln 10 mg PO q4hr PRN for severe pain (7+/10) - Tylenol susp. 650 mg PO Q6hr PRN for breakthrough pain DVT Prophylaxis: lovenox - Time Spent with Patient Total time spent is greater than 50% in coordination of care (as documented) at patient's floor/unit and/or counseling patient: less than 15 minutes Internal Medicine: Result - Labs CBC & Chem 7: 03/29/18 04:08 03/29/18 04:08 Labs: Short CBC 03/29/18 Range/Units 04:08 WBC 7.6 D (4.3-11.1) K/mcL Hgb 8.6 L (11.5-15.4) g/dL Hct 26.0 L (35.3-44.9) % Plt Count 202 (140-400) K/mcL Neutrophils # 5.7 (1.6-8.9) K/mcL BMP 03/29/18 04:08 Sodium 136 Potassium 3.8 Chloride 99 Carbon Dioxide 29 BUN 8 Creatinine 0.41 L Glucose 109 H Calcium 8.7 Consult Discharge Plan - Plan Additional Instructions: Discharge Instructions: Total Knee Replacement Please call [facility] ([phone]), your Primary Care Physician, or report to the Emergency Room if you have any of the following symptoms: Nausea, vomiting, fever greater that 101.5, swelling, chest pain, shortness of breath, increased pain/redness/drainage/odor for your incision site, numbness/tingling, or any other concerning symptoms. ACTIVITY:Weight-bearing as tolerated. You may progress off support (crutches or walker) as tolerated. Incentive Spirometer 10 times an hour. MEDICATIONS: Upon discharge resume your home medications. Take all the medications as prescribed. Take a stool softener if taking narcotic pain medications. Stool softeners are only effective if you drink enough fluids. Drink 6-8 glass of water or fluids a day, unless this is not allowed for another health problem. Despite using stool softeners, if you haven't had a bowel movement in 3 days, please switch to a gentle laxative. Gentle laxatives are sold over the counter. You should have a bowel movement within 24 hours, if not call the office. You will be discharged from the hospital with a prescription for pain medication. You are encouraged to decrease the use of narcotic pain medication as tolerated. Should you require a refill, please call the office. [facility] prescribes narcotic pain medication for only 4-6 weeks after surgery. If you require pain medication beyond this time period, you may be referred to your Primary Care Physician or to the Pain Clinic for further evaluation. Plan ahead for refills on pain medication as many narcotics either need to be picked up at the office or mailed. It is best to call 48-72 hours in advance of needing a prescription refill so you don't run out of medication. To help control the post-operative pain, you may take NSAIDs (Aleve,Advil, Motrin, Ibuprofen, Naprosyn) or Tylenol as prescribed on the bottle in addition to the pain medication. ANTICOAGULATION (blood thinners): Continue your Aspirin, Lovenox or Coumadin as prescribed to help prevent a blood clot in the leg or in the lungs. As long as your incision remains dry and you tolerate the NSAIDs (Aleve, Advil, Motrin, ibuprofen, naprosyn), it is OK to use the NSAIDS while you are taking your anticoagulation medication. Should your incision start to drain, stop the NSAID and contact our office. Common symptoms of blood clot in the legs include: localized pain, swelling, calf tenderness, redness or discoloration of the skin. Blood clot in the lung symptoms include: shortness of breath, rapid pulse, sweating, and chest pain that worsens with deep breathing, coughing up blood, lightheadedness, feelings of anxiety. If you experience any of these symptoms notify your physician immediately, go to the emergency room, or if having trouble breathing, call 911. WOUND CARE: Leave the dressing on for 7 to 10days. You may change the dressing if it becomes saturated greater than 50%. Do not get the dressing wet at anytime. Wash your hands with antibacterial soap, rinse and dry prior to any wound care. If you have anatoliy the visiting nurse or rehab facility can remove the stapes 10-14 days after surgery and place steri-strips across the wound. Leave the steri-strips in place until they fall off on their won. You may let water from the shower run on top of the steri-strips. If you do not have a visiting nurse or rehab facility, you will need to return to the office at 10-14 days for the anatoliy to be removed. If you have itching or redness around the dressing call the office. FOLLOW-UP: Please follow up with your surgeon in the orthopedic clinic in 4 weeks from the day of surgery. If you have anatoliy that need to be removed, you will need to come back to the office in 10-14 days from the day of surgery. Referrals: Rajeev King MD [Partnered Physician] - 04/25/18 5:05 pm Dejah Hassan PAC [Physician Export Clerk] - 04/04/18 10:30 am (Second followup 04/13/18 @ 8am) Reji Gomez DO [Resident] - 04/03/18 1:00 pm (CBC and BP recheck) Prescriptions: Lisinopril [Zestril] 10 mg PO DAILY #7 tablet <Kristie Cadena - Last Filed: 03/29/18 16:21> Hospitalist Progress Note - Encounter Date of Encounter: 03/29/18 - Exam Vitals: Temp Pulse Resp BP Pulse Ox 98.7 F 88 18 135/85 100 03/29/18 10:57 11/15/18 10:57 03/29/18 10:57 03/29/18 10:57 03/29/18 10:57 - Assessment and Plan (1) Status post total knee replacement, left Status: Acute (2) Acute blood loss anemia Status: Acute (3) Elevated blood pressure reading Status: Acute - Time Spent with Patient Total time spent is greater than 50% in coordination of care (as documented) at patient's floor/unit and/or counseling patient: Internal Medicine: Result - Labs CBC & Chem 7: 03/29/18 04:08 03/29/18 04:08 Labs: Short CBC 03/29/18 Range/Units 04:08 WBC 7.6 D (4.3-11.1) K/mcL Hgb 8.6 L (11.5-15.4) g/dL Hct 26.0 L (35.3-44.9) % Plt Count 202 (140-400) K/mcL Neutrophils # 5.7 (1.6-8.9) K/mcL BMP 03/29/18 04:08 Sodium 136 Potassium 3.8 Chloride 99 Carbon Dioxide 29 BUN 8 Creatinine 0.41 L Glucose 109 H Calcium 8.7 - Attending Attestation The history, physical exam, and medical decision making was performed by medical student Long either while I was physically present and actively involved or I p ersonally re-performed the exam and medical decision making. I have verified the accuracy of the medical student's documentation with regards to the history, physical exam findings, and medical decision making. Internal Medicine consult for post op anemia and HTN She had total left knee replacement on 03/26 Hgb down trend from normal on 03/22 to 10.4 post op and further down to 7.9 . She received one unit prbc with appropriate hgbincrease and has hgb 8.6 today Primary team started lisinopril this admission with good effect when combined with increased pain control. Sleeping in bed sitting up and comfortable appearing. Awakes ot name and states he pain is unchanged. She denies duke, vision changes or cp with bp elevations. Denies lightheadedness, dizziness, sob or fatigue with hgb changes. She denies any bleeding. + flatus, no difficulty urinating, eating or drinking gen- tired appearing, awake,appears stated age eyes- pupils equal round , no conjunctival pallor cv- reg rate and rhythm, normal s1,s2, no murmurs appreciated lungs- ctabl, no wheezing, rhonchi or crackles, normal resp effort skin - no pallor neuro- AAOx3 Acute Blood Loss anemia post op total left knee replacement -no other identifiable bleeding this admission, she has been cleared by orhto for dc, no apparent hemarthrosis -hgb up with 1 unit prbc and hemodynamically stable -recommend she see pcp within 5 days and have repeat cbc within that time, further outpt work up deferred to pcp if does not cont to improve Elevated BPs likely pain contributing but remained elevated when not in pain -agree with lisinopril started by primary team and would cont at dc given todays bp readings pre and post tx, would give short term rx and have her see pcp as above for further bp monitoring and med adjustments. s/p left total knee- post op care and follow up as per primary team ortho plann to dc and we will sign off at this time
[2018-03-29 10:59] VITALS: BP 135/85
== END 2018-03-29 12:56 | disposition home health service (06) ==
LOC: 3NENU 10:00 → SAMDAY 10:00 → 3NENU 16:58
PROVIDERS: ADMIT Orthopaedic Surgery; ATTEND Orthopaedic Surgery

== ENCOUNTER 2019-03-29 04:10 | Inpatient (IN) ==
[2019-03-29] MEDS ORDERED: Naloxone 0.4 MG/ML INJ IVP PRN ×3 (05:53→20:09)
[2019-03-29] MEDS: Ketorolac 30 MG/ML VIAL IVP PRN ×2 (06:07→14:56)
[2019-03-29] MEDS ORDERED: Ondansetron 4 MG/2 ML VIAL IVP PRN ×2 (08:32→20:09)
[2019-03-29 09:37] LABS: Basophils % 0.6 %; Eosinophils # 0.1 K/mcL (0.0-0.6); Eosinophils % 0.8 %; Hematocrit 30.1 % (35.3-44.9); Hemoglobin 8.8 g/dL (11.5-15.4); Immature Granulocytes % 0.3 % (0-4); Lymphocytes # 1.4 K/mcL (0.6-4.6); Lymphocytes % 19.6 %; Mean Corpuscular HGB Conc 29.2 g/dL (31.6-35.5); Mean Corpuscular Hemoglobin 20.2 pg (28.0-33.3); Mean Platelet Volume 8.7 fL (9.4-12.4); Monocytes # 0.5 K/mcL (0.0-1.3); Monocytes % 6.6 %; Neutrophils # 5.1 K/mcL (1.6-8.9); Platelet Count 391 K/mcL (140-400); Red Blood Count 4.36 M/mcL (3.82-4.97); Red Cell Distribution Width 16.9 % (11.5-14.5); Segmented Neutrophils % 72.1 %; White Blood Count 7.1 K/mcL (4.3-11.1)
[2019-03-29 09:46] LABS: INR 1.1; Prothrombin Time 12.8 Seconds (9.4-12.1)
[2019-03-29 10:02] LABS: % Iron Saturation 4 % (15-50); BUN/Creatinine Ratio 28 (6-26); Blood Urea Nitrogen 13 mg/dL (6-20); Calcium 8.3 mg/dL (8.6-10.3); Carbon Dioxide 25 mEq/L (23-29); Chloride 105 mEq/L (98-107); Glucose 83 mg/dL (70-105); Iron 20 mcg/dL (50-170); Magnesium 1.8 mg/dL (1.6-2.6); Osmolality,Calculated 287 (280-300); Phosphorous 3.2 mg/dL (2.7-4.5); Potassium 3.4 mEq/L (3.5-5.1); Sodium 139 mEq/L (136-145); Transferrin 359 mg/dL (203-362); eGFR For African Americans > 60 (> 60); eGFR For Non-African Americans > 60 (> 60)
[2019-03-29 10:08] LABS: Anisocytosis 1+ (Not Present); Hypochromasia Present (Not Present); Microcytosis Present (Not Present)
[2019-03-29 10:09] LABS: Platelet Estimate Normal (Normal)
[2019-03-29 10:12] LABS: Ferritin 8 ng/mL (10-120)
[2019-03-29 10:17] LABS: Folate 12.6 ng/mL (3.0-16.0)
[2019-03-29] MEDS ORDERED: Sodium Ferric Gluconat/Sucrose 125 MG in 0.9 % Sodium Chloride 100 ML IVPB SCH (11:15)
[2019-03-29 15:16] LABS: Bilirubin,Urine Negative (Negative); Blood,Urine Moderate (Negative); Color,Urine Yellow (Yellow); Glucose,Urine (UA) Normal (Normal); Ketones,Urine Trace mg/dL (Negative); Leukocyte Esterase,Urine Small (Negative); Nitrite,Urine Negative (Negative); PH,Urine 6.5 pH Units (5.0-8.0); Protein,Urine Negative (Neg-Trace); Specific Gravity,Urine 1.019 (1.010-1.025); Urobilinogen,Urine Normal (Normal)
[2019-03-29 15:18] LABS: Bacteria,Urine None Seen per hpf (None-Few); Hyaline Casts,Urine Moderate per lpf (None-Few); RBC,Urine 50-100 per hpf (0-3); Squamous Epithelial Cell,Urine Many per lpf (None-Few)
[2019-03-29 15:22] LABS: Clarity,Urine Clear (Clear)
[2019-03-29 15:24] LABS: Amphetamine Screen,Urine Positive ng/mL (Cutoff=1000); Barbiturate Screen,Urine Negative ng/mL (Cutoff=200); Benzodiazepines Screen,Urine Negative ng/mL (Cutoff=200); Cannabinoid Screen,Urine Negative ng/mL (Cutoff = 50); Cocaine Screen,Urine Negative ng/mL (Cutoff= 300); Opiate Screen,Urine Positive ng/mL (Cutoff=300); Phencyclidine Screen,Urine Negative ng/mL (Cutoff=25)
[2019-03-29] MEDS ORDERED: *HR* FentaNYL (PF) 100 MCG/2 ML VIAL ONE (17:11)
[2019-03-29] MEDS ORDERED: *HR* Propofol 200 MG/20 ML VIAL IVP ONE (17:11)
[2019-03-29] MEDS ORDERED: *HR* Midazolam HCl 2 MG/2 ML VIAL ONE (17:11)
[2019-03-29] MEDS ORDERED: Ondansetron 4 MG/2 ML VIAL ONE (17:14)
[2019-03-29] MEDS ORDERED: Dexamethasone 4 MG/ML VIAL ONE (17:14)
[2019-03-29] MEDS ORDERED: Lidocaine -MPF 1% 5 ML AMPUL ONE (17:14)
[2019-03-29] MEDS ORDERED: Ethanol\\Acetic Acid\\Na Ace\\Ben 1,000 ML IRRIG.SOLN IR ONE (17:18)
[2019-03-29] MEDS ORDERED: Ropivacaine/PF 0.5% 30 ML VIAL ONE (17:29)
[2019-03-29] MEDS ORDERED: *HR* Promethazine 25 MG/ML VIAL IVP PRN (17:43)
[2019-03-29] MEDS ORDERED: *HR* Meperidine 25 MG/ML SYRINGE IVP PRN (17:43)
[2019-03-29] MEDS ORDERED: Ondansetron 4 MG/2 ML VIAL IVP ONE (17:43)
[2019-03-29] MEDS ORDERED: *HR* HYDROmorphone (PF) 1 MG/ML SYRINGE IVP PRN (17:43)
[2019-03-29] MEDS ORDERED: CeFAZolin Syr 2,000MG/20 ML 2,000 MG/20 ML SYRINGE IVPB ONE (17:48)
[2019-03-29] MEDS ORDERED: cefTRIAXone 1,000 MG in Water for inj. (sterile) 10 ML IVP SCH (18:00)
[2019-03-29] MEDS ORDERED: *HR* Heparin 5,000 UNIT/ML VIAL SQ SCH (18:00)
[2019-03-29] MEDS ORDERED: Sennosides 8.6 MG TABLET PO PRN (20:09)
[2019-03-29] MEDS ORDERED: traMADol 50 MG TABLET PO PRN (20:09)
[2019-03-29 20:14] LABS: Hematocrit 27.6 % (35.3-44.9)
[2019-03-29] MEDS: *HR* OxyCODONE/APAP 5/325 TABLET PO PRN (21:11)
[2019-03-30] MEDS: *HR* OxyCODONE/APAP 5/325 TABLET PO PRN ×3 (07:49→17:06)
[2019-03-30 08:30] LABS: Hematocrit 26.5 % (35.3-44.9); Hemoglobin 7.8 g/dL (11.5-15.4); Mean Corpuscular HGB Conc 29.4 g/dL (31.6-35.5); Mean Corpuscular Hemoglobin 20.6 pg (28.0-33.3); Mean Corpuscular Volume 69.9 fL (83.0-100.0); Mean Platelet Volume 8.8 fL (9.4-12.4); Platelet Count 465 K/mcL (140-400); Red Blood Count 3.79 M/mcL (3.82-4.97); Red Cell Distribution Width 17.1 % (11.5-14.5); White Blood Count 8.8 K/mcL (4.3-11.1)
[2019-03-30 08:31] LABS: Hematocrit 27.3 % (35.3-44.9); Hemoglobin 8.2 g/dL (11.5-15.4)
[2019-03-30] MEDS: Sodium Ferric Gluconat/Sucrose 125 MG in 0.9 % Sodium Chloride 100 ML IVPB SCH (08:34)
[2019-03-30 08:50] LABS: BUN/Creatinine Ratio 22 (6-26); Blood Urea Nitrogen 16 mg/dL (6-20); Calcium 8.4 mg/dL (8.6-10.3); Carbon Dioxide 25 mEq/L (23-29); Chloride 102 mEq/L (98-107); Glucose 236 mg/dL (70-105); Osmolality,Calculated 285 (280-300); Potassium 3.9 mEq/L (3.5-5.1); Sodium 133 mEq/L (136-145); eGFR For African Americans > 60 (> 60); eGFR For Non-African Americans > 60 (> 60)
[2019-03-30] MEDS: *HR* Heparin 5,000 UNIT/ML VIAL SQ SCH (17:03)
[2019-03-31] MEDS: *HR* OxyCODONE/APAP 5/325 TABLET PO PRN ×4 (00:44→19:56)
[2019-03-31 01:40] LABS: Hematocrit 22.7 % (35.3-44.9); Hemoglobin 6.9 g/dL (11.5-15.4); Mean Corpuscular HGB Conc 30.4 g/dL (31.6-35.5); Mean Corpuscular Hemoglobin 20.6 pg (28.0-33.3); Mean Corpuscular Volume 67.8 fL (83.0-100.0); Mean Platelet Volume 9.2 fL (9.4-12.4); Platelet Count 428 K/mcL (140-400); Red Blood Count 3.35 M/mcL (3.82-4.97); Red Cell Distribution Width 17.3 % (11.5-14.5); White Blood Count 5.9 K/mcL (4.3-11.1)
[2019-03-31 01:58] LABS: BUN/Creatinine Ratio 33 (6-26); Blood Urea Nitrogen 18 mg/dL (6-20); Calcium 8.1 mg/dL (8.6-10.3); Carbon Dioxide 24 mEq/L (23-29); Chloride 104 mEq/L (98-107); Glucose 114 mg/dL (70-105); Osmolality,Calculated 283 (280-300); Potassium 3.7 mEq/L (3.5-5.1); Sodium 135 mEq/L (136-145); eGFR For African Americans > 60 (> 60); eGFR For Non-African Americans > 60 (> 60)
[2019-03-31] MEDS: *HR* Heparin 5,000 UNIT/ML VIAL SQ SCH ×2 (05:48→17:24)
[2019-03-31] MEDS ORDERED: 0.9 % Sodium Chloride 250 ML IVC SCH (08:00)
[2019-03-31] MEDS: *HR* OxyCODONE Immed Rel 5 MG TABLET PO PRN ×2 (09:01→15:44)
[2019-03-31] MEDS: Sodium Ferric Gluconat/Sucrose 125 MG in 0.9 % Sodium Chloride 100 ML IVPB SCH (10:14)
[2019-03-31] MEDS: Furosemide 20 MG/2 ML VIAL IVP PRN ×2 (11:12→15:44)
[2019-04-01] MEDS: *HR* OxyCODONE Immed Rel 5 MG TABLET PO PRN ×3 (02:18→14:09)
[2019-04-01 04:37] LABS: Hematocrit 32.1 % (35.3-44.9)
[2019-04-01] MEDS: *HR* Heparin 5,000 UNIT/ML VIAL SQ SCH ×2 (06:46→17:14)
[2019-04-01] MEDS: Sodium Ferric Gluconat/Sucrose 125 MG in 0.9 % Sodium Chloride 100 ML IVPB SCH (10:19)
[2019-04-01] MEDS: *HR* OxyCODONE/APAP 5/325 TABLET PO PRN (18:31)
[2019-04-02] MEDS: *HR* OxyCODONE/APAP 5/325 TABLET PO PRN ×4 (00:13→14:47)
[2019-04-02] MEDS: *HR* Heparin 5,000 UNIT/ML VIAL SQ SCH (05:22)
[2019-04-02 06:16] LABS: BUN/Creatinine Ratio 30 (6-26); Blood Urea Nitrogen 13 mg/dL (6-20); Carbon Dioxide 30 mEq/L (23-29); Chloride 99 mEq/L (98-107); Glucose 133 mg/dL (70-105); Osmolality,Calculated 282 (280-300); Potassium 4.2 mEq/L (3.5-5.1); Sodium 135 mEq/L (136-145); eGFR For African Americans > 60 (> 60); eGFR For Non-African Americans > 60 (> 60)
[2019-04-02 06:32] LABS: Basophils # 0.1 K/mcL (0.0-0.2); Eosinophils # 0.2 K/mcL (0.0-0.6); Eosinophils % 3.1 %; Hematocrit 31.6 % (35.3-44.9); Hemoglobin 10.1 g/dL (11.5-15.4); Immature Granulocytes % 0.5 % (0-4); Lymphocytes # 1.2 K/mcL (0.6-4.6); Mean Corpuscular Hemoglobin 23.3 pg (28.0-33.3); Mean Corpuscular Volume 72.8 fL (83.0-100.0); Mean Platelet Volume 8.5 fL (9.4-12.4); Monocytes # 0.5 K/mcL (0.0-1.3); Monocytes % 8.3 %; Neutrophils # 3.9 K/mcL (1.6-8.9); Platelet Count 356 K/mcL (140-400); Red Blood Count 4.34 M/mcL (3.82-4.97); Segmented Neutrophils % 66.1 %; White Blood Count 5.9 K/mcL (4.3-11.1)
[2019-04-02 11:38] VITALS: BP 121/68
== END 2019-04-02 15:27 | DRG 481 ==
LOC: 3NENU → SUATTDRO 05:13
PROVIDERS: ADMIT Family Medicine; ATTEND Internal Medicine